=== PATIENT | male | born 1965 | race Caucasian/White ===

== ENCOUNTER 2019-07-31 08:08 | Day surgery (SDC) | payer OTHER ==
[~2019-07-31] VITALS: Ht 177.8 cm; Wt 97.5 kg
[2019-07-31 08:31] VITALS: BP 161/104
[2019-07-31 14:47] VITALS: BP 142/96
== END 2019-07-31 14:35 | disposition home or self-care (01) ==
LOC: DS 08:08
DX: S46.292A Other injury of muscle, fascia and tendon of other parts of biceps, left arm, initial encounter (principal); X58.XXXA Exposure to other specified factors, initial encounter; Y93.89 Activity, other specified; Y92.89 Other specified places as the place of occurrence of the external cause; Y99.8 Other external cause status
CPT/HCPCS: J0690; J2250; J2405; J2704; J3010; J3490; J7120